=== PATIENT | male | born 1955 | race African-American/Black ===

== ENCOUNTER 2017-08-27 09:25 | Emergency (ER) | payer OTHER ==
[~2017-08-27] VITALS: Ht 180.3 cm; Wt 110.0 kg
[~2017-08-27 09:25] MED LIST: FLAG500T PO; LEVA750T PO; LORTA5 PO
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
[2017-08-27 09:55] VITALS: BP 119/68; PULSE 67; RESP 16; O2SAT 96
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
[2017-08-27] MEDS ORDERED: IBUP-232 PO (11:17)
[2017-08-27] MEDS ORDERED: ROBA500T PO (11:17)
== END 2017-08-27 11:35 | disposition home or self-care (01) ==
LOC: NEPD 09:25
DX: S16.1XXA Strain of muscle, fascia and tendon at neck level, initial encounter (principal); I10 Essential (primary) hypertension; M25.511 Pain in right shoulder; M25.512 Pain in left shoulder; Z86.79 Personal history of other diseases of the circulatory system; V84.0XXA Driver of special agricultural vehicle injured in traffic accident, initial encounter; Y92.410 Unspecified street and highway as the place of occurrence of the external cause
CPT/HCPCS: 72125; 99284